=== PATIENT | female | born 1985 | race Caucasian/White ===

== ENCOUNTER 2016-07-16 08:24 | Emergency (ER) | payer OTHER ==
[~2016-07-16] VITALS: Ht 162.6 cm; Wt 72.0 kg
[~2016-07-16 08:24] MED LIST: CYCL-319 PO; HYDR-906 PO; IBUP-1542 PO; NAPR-260 PO
[2016-07-16 08:28] VITALS: Ht 162.6 cm; Wt 72.0 kg
--- NOTE | 2016-07-16 09:27 | RADRPT ---
PROCEDURE: CT head without Contrast CLINICAL INDICATION: Trauma TECHNIQUE: Transaxial images were made through the head on a multi-slice scanner without intraveno us contrast. Coronal and sagittal images were subsequently reformatted. One or more of the following dose reduction techniques were used: - Automated exposure control. - Adjustment of the mA and/or kV according to patient size. - Use of iterative reconstruction technique. Radiation dose: CTDIvol = 44.81 mGy; DLP = 720.23 mGy-cm. COMPARISON: None FINDINGS: The calvarium appears intact. There is a small right high parietal scalp hematoma. The mastoid air cells and paranasal sinuses are well-aerated.. The ventricles are normal in size and there is no midline shift. A 3 mm calcification is seen within the lateral left frontal lobe. No intracranial bleed, mass, or extra-axial fluid collection is identified. There is good baires-white matter differentiation. IMPRESSION: 1. 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 2. Small high right parietal scalp hematoma. 3. Otherwise, unremarkable noncontrast enhanced CT scan of the head. Physician Fara Date Time Electronically viewed and signed by Physician Fara on 07/16/2016 09:27 /
[2016-07-16] MEDS ORDERED: IBUP-1542 PO (09:50)
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
== END 2016-07-16 10:05 | disposition home or self-care (01) ==
LOC: E/R 08:24
DX: S00.03XA Contusion of scalp, initial encounter (principal); Y08.89XA Assault by other specified means, initial encounter
CPT/HCPCS: 70450

== ENCOUNTER 2016-09-01 19:53 | Emergency (ER) | payer OTHER ==
[~2016-09-01] VITALS: Ht 157.5 cm; Wt 87.0 kg
[2016-09-01 20:17] VITALS: Ht 157.5 cm; Wt 87.0 kg
--- NOTE | 2016-09-01 20:42 | ERD ---
ER Documentation Chief Complaint Date/Time DATE: 09/01/16 TIME: 20:[address], colds x1 week and cough and body malaise x2 days. afebrile today HPI 31-year-old female who presents to the emergency room for sore throat, productive cough for about a week. Denies headache, loss of consciousness, dizziness, blurry vision, changes in vision, photophobia, facial pain, ear pain, difficulty swallowing, neck pain, shoulder pain, chest pain, hemoptysis, abdominal pain, back pain, loss of appetite, nausea, vomiting, hematochezia, diarrhea, constipation, urinary symptoms, , the possibility of being , bladder and bowel incontinences, extremity weakness, extremity tenderness, numbness or tingling sensation, difficulty walking, recent travel, recent exposure to illness, recent antibiotic use in the last 3 months, fever, chills. LMP:" I started." A2 Denies any allergies. Past medical history: Migraine. Surgery: Cholecystectomy. Medication: [id number] medications for sore throat. Social: Not working at this time. Denies smoking, use of alcohol, use of illicit drugs. ROS All systems reviewed and are negative except as per history of present illness. Medications Home Meds Active Scripts Acetaminophen* (Tylenol*) 325 Mg Tablet, 2 TAB PO Q6 Y for PAIN AND OR ELEVATED TEMP, #20 TAB Prov:LARRY FARNSWORTH 09/01/16 Albuterol Sulfate* (Proair HFA*) 8.5 Gm Hfa.aer.ad, 2 PUFF INH Q4, #1 INHALER Prov:LARRY FARNSWORTH 09/01/16 Ibuprofen* (Motrin*) 800 Mg Tab, 800 MG PO Q6H Y for PAIN AND OR ELEVATED TEMP, #30 TAB Prov:LARRY FARNSWORTH 09/01/16 Amoxicillin/Potassium Clav (Amox-Clav 875-125 mg Tablet) 875-125 mg Tab, 1 TAB PO BID for 7 Days, #14 TAB Prov:DAJADOLORESMURRAY Jenna 09/01/16 Ibuprofen* (Motrin*) 600 Mg Tab, 600 MG PO Q6H Y for PAIN AND OR ELEVATED TEMP, #30 TAB Prov:GREGORY HORAN 07/16/16 Cyclobenzaprine Hcl* (Cyclobenzaprine Hcl*) 10 Mg Tablet, 10 MG PO TID, #15 TAB Prov:GABRIELLE GOLDEN PA-C 03/15/16 Naproxen* (Naprosyn*) 500 Mg Tablet, 500 MG PO BID Y for PAIN AND/OR INFLAMMATION, #30 TAB Prov:GABRIELLE GOLDEN PA-C 03/15/16 Hydrocodone/Acetaminophen ([place] 5-325 Tablet) 1 Each Tablet, 1 TAB PO Q6H Y for PAIN, #7 TAB Prov:GABRIELLE GOLDEN PA-C 03/15/16 Ibuprofen* (Motrin*) 600 Mg Tab, 600 MG PO Q6, #30 TAB Prov:GABRIELLE GOLDEN PA-C 04/21/15 Allergies Allergies: Coded Allergies: No Known Allergy (Verified , 05/29/11) PMhx/Soc History of Surgery: Yes (cholecystectomy) Anesthesia Reaction: No Hx Respiratory Disorders: No Hx Cardiac Disorders: No Hx Psychiatric Problems: No Hx Miscellaneous Medical Probl: Yes (depression) Hx Alcohol Use: No Hx Substance Use: No Hx Tobacco Use: No Physical Exam Vitals Vital Signs Date Time Temp Pulse Resp B/P Pulse Ox O2 Delivery O2 Flow Rate FiO2 09/01/16 20:17 98.6 81 18 121/80 97 Physical Exam CONSTITUTIONAL: Well-appearing; well-nourished; in no apparent distress. HEAD: Normocephalic; atraumatic. EYES: Conjunctiva clear, sclera non-icteric, EOM intact. PERRL Ears: Hearing intact. EACs clear, TMs non-bulging, non-inflamed, translucent & mobile, ossicles normal appearance, No obstructions, no erythema, no discharges Nose: No obstructions. No polyps. No external lesions. Mucosa non-inflamed. No external lesions, septum and turbinates normal. No rhinorrhea. No discharges. Frontal sinus is tender to palpation. Maxillary sinus is tender to palpation. MOUTH: Moist mucous membranes, no lesion, no obstructions, no vesicles, no thrush, patent airway Throat: Uvula in midline. Right tonsil is +2 with erythema, no exudate. Left tonsil is +2 with erythema, no exudate. Tolerating secretions well. Good gag reflex. Patent airway. Neck: Supple, without lesions, bruits, or adenopathy. No mass. Thyroid non- enlarged and non-tender to palpation. Good and full range of motion of neck and spine without pain/swelling/discoloration/tenderness. CHEST: Symmetrical chest. Respirations even and not labored. No retractions noted. CARDIOVASCULAR: Normal S1, S2. RRR. No murmurs, gallops. RESPIRATORY: Normal chest excursion with respiration; breath sounds clear and equal bilaterally; no wheezes, rhonchi, or rales. Breathing even and unlabored. Speaking in clear, full, and complete sentences w/ ease. ABDOMEN: Normal bowel sounds normal. Soft, round, non-distended, non-guarding, no tenderness, no rebound, no organomegaly, no masses, no pulsating abdominal mass. No hernia. No peritoneal signs. : No CVA tenderness. BACK: Symmetrical shoulder. Spine is midline without deformity, tenderness. No evidence of trauma or deformity. PELVIS: Stable pelvis. No evidence of trauma or deformity. MUSCULOSKELETAL: Normal gait and station. No misalignment, asymmetry, crepitation, defects, tenderness, masses, effusions, decreased range of motion, instability, atrophy or abnormal strength or tone in the head, neck, spine, ribs , pelvis or extremities. No calf tenderness. NEUROVASCULAR: Distal pulses are present. Pedal pulse are present, equal, and normal. Capillary refills are < 2 seconds. NEUROLOGIC: Alert and oriented x4. Speaks full and clear sentences. Cranial Nerves II-XII normal. Sensation to pain, touch, and proprioception normal. Grossly unremarkable. No neurologic deficits. Romberg test is negative. PSYCHOLOGICAL: The patients mood and manner are appropriate. No hallucinations , delusions. Not SI. Not HI. Has the capacity to decide for self SKIN: Normal for age and ethnicity; warm; dry; good turgor; no apparent lesions or exudates. No rashes, hives, discoloration. Intact. Procedures/MDM Examination: Please see physical examination. Differential diagnosis: Pneumonia versus bronchitis versus upper respiratory infection versus strep throat versus tonsillitis versus acute sinusitis Medical decision makin-year-old female who presents to the emergency room for sore throat, productive cough for about a week. Patient's complaint, my physical findings are consistent with my final diagnosis of sinusitis, tonsillitis, bronchitis Medications prescribed are the following: Augmentin. Pro-air. Motrin. Tylenol. Patient and family member are made aware of the side effects and adverse reactions of the medications prescribed. Instructed on when to seek emergent and medical attention in case allergic/anaphylactic reactions or severe side effects and or adverse reactions to medications. Patient and family member verbalized understanding. Patient instructed Instructed to follow-up with his PCP in 24-48 hours. Patient stated that she will see her primary care physician tomorrow. Instructed to Call 911 for chest pain, shortness of breath. Advised to come back here in ED as soon as possible for severity of symptoms which includes but not limited to: any new symptoms; shortness of breath/difficulty of breathing; cardiovascular changes; severe gastrointestinal symptoms; signs and symptoms of bleeding and or infection; signs of compartment syndrome/neurovascular changes; neurological changes/deficits. Patient and family member verbalized understanding. Upon discharge, patient is alert and oriented x 4, speaks full and clear sentences, denies pain, has no neurological deficits, has no neurovascular deficits, difficulty of breathing. Breathing even and unlabored. Lung sounds are clear to auscultation. Not in distress. Appears comfortable. Ambulatory with steady gait. Appears satisfied with care provided here in ED. Departure Diagnosis: Primary Impression: Sinusitis Sinusitis location: maxillary Chronicity: acute Additional Impression: Tonsillitis Condition: Good Additional Instructions: Patient instructed Instructed to follow-up with his PCP in 24-48 hours. Patient stated that she will see her primary care physician tomorrow. Instructed to Call 911 for chest pain, shortness of breath. Advised to come back here in ED as soon as possible for severity of symptoms which includes but not limited to: any new symptoms; shortness of breath/difficulty of breathing; cardiovascular changes; severe gastrointestinal symptoms; signs and symptoms of bleeding and or infection; signs of compartment syndrome/neurovascular changes; neurological changes/deficits. Patient and family member verbalized understanding. LARRY FARNSWORTH Sep 01, 2016 20:42
[2016-09-01] MEDS ORDERED: ALBU8.5H3 INH (20:43)
[2016-09-01] MEDS ORDERED: IBUP800T25 PO (20:43)
[2016-09-01] MEDS ORDERED: AMOX1TAB10 PO (20:43)
[2016-09-01] MEDS ORDERED: ACET325T33 PO (20:44)
== END 2016-09-01 20:45 | disposition home or self-care (01) ==
LOC: E/R 19:53
DX: J01.00 Acute maxillary sinusitis, unspecified (principal); J03.90 Acute tonsillitis, unspecified
CPT/HCPCS: 99284

== ENCOUNTER 2016-10-12 19:35 | Emergency (ER) | payer SELFPAY ==
[~2016-10-12] VITALS: Ht 162.6 cm; Wt 86.5 kg
[~2016-10-12 19:35] MED LIST changes: +ACET325T33 PO; +ALBU8.5H3 INH; +AMOX1TAB10 PO; +IBUP800T25 PO
[2016-10-12 19:39] VITALS: Ht 162.6 cm; Wt 86.5 kg
== END 2016-10-12 21:45 | disposition left against medical advice (07) ==
LOC: FTE 19:35
DX: Z53.21 Procedure and treatment not carried out due to patient leaving prior to being seen by health care provider (principal)

== ENCOUNTER 2017-04-06 16:47 | Outpatient (CLI) | payer OTHER ==
[~2017-04-06] VITALS: Ht 165.1 cm; Wt 91.1 kg
[2017-04-06 16:56] VITALS: Ht 165.1 cm; Wt 91.1 kg
[2017-04-06 16:57] VITALS: BP 140/73; RESP 16
[2017-04-06] MEDS ORDERED: PREN-17 PO (17:01)
[2017-04-06 17:29] LABS: ADD UMIC YES; UR ASCORBIC ACID 40 mg/dL (NEGATIVE); UR BILIRUBIN (Dip) NEGATIVE (NEGATIVE); UR BLOOD (Dip) NEGATIVE (NEGATIVE); UR CLARITY SLIGHTLY CLOUDY (CLEAR); UR COLOR YELLOW (YELLOW); UR GLUCOSE (Dip) NEGATIVE (NEGATIVE); UR KETONES (Dip) 1+ mg/dL (NEGATIVE); UR LEUKOCYTE ESTERASE (Dip) TRACE Leu/ul (NEGATIVE); UR NITRITE (Dip) NEGATIVE (NEGATIVE); UR RBC 14 /HPF (0-5); UR SPECIFIC GRAVITY (Dip) 1.027 (1.003-1.030); UR SQUAMOUS EPITHELIAL CELL FEW /HPF (FEW); UR TOTAL PROTEIN (Dip) NEGATIVE (NEGATIVE); UR UROBILINOGEN (Dip) NEGATIVE (NEGATIVE)
--- NOTE | 2017-04-06 18:43 | TRIAGE ---
OB Triage Datetime Report Generated by CPN: 04/06/2017 18:43 Datetime: 04/06/2017 18:09 Labor Evaluation Frequency: 0 Pattern: Normal: <= 5 Contractions in 10 Minutes Datetime: 04/06/2017 17:05 Stage of : OB Triage Assessment Type: Triage Maternal Assessment Level of Consciousness: Fully Conscious DTR's/Clonus: DTRs 2+; No Clonus Headache: Denies Blurred Vision: No Respiratory Effort: Unlabored; Regular Rhythm; Equal Expansion Breath Sounds, Left: Clear and Equal Breath Sounds, Right: Clear and Equal Nausea/Vomiting: Denies RUQ Epigastric Pain: Denies Lower Extremities Edema: None Degree: None Upper Extremities Edema: None Degree: None Facial Edema: None Temperature Route: Oral Fall Risk Assessment History of Falling: (0) No Secondary Diagnosis: (0) No Ambulatory Aid: (0) Bedrest/Nurse Assist IV Therapy: (0) No Gait: (0) Normal/Bedrest/Immobile Mental Status: (0) Oriented to Own Ability Fall Score: 0 Fall Risk Score Definition: No Risk: No action required Monitor Mode: External Heart Rate FHR Baseline Rate: 135 Monitor Mode: External US Variability: Moderate 6-25 bpm Accelerations: 15X15 Decelerations: None Category: Category I Pain Assessment Pain Scale: 8 Pain Presence: Intermittent Pain Type: Cramping; Ache Pain Location: Right Groin; Left Groin Pain Goal: 0 Pain Relief Measures: Comfort Measures Datetime: 04/06/2017 17:04 Time of Arrival: 04/06/2017 13:05 EGA: 23.4 Arrived By: Ambulatory Arrived From: Home Chief Complaint: PAINFUL URINATION AND SIDE LIGAMENT PAIN Movement: Present Contractions: Denies/Absent Rupture of Membranes: Denies Vaginal Bleeding: None Vaginal Discharge: Denies Recent Sexual Intercouse: Denies Abdominal Trauma: Not Applicable Patient Complaints: Other Time Provider Notified: 04/06/2017 18:11 Provider Notified: UJLY Initial Plan: [id number], UA
--- NOTE | 2017-04-06 18:45 | CONS ---
Date/Time of Note Date/Time of Note DATE: 04/06/17 TIME: 18:39 Consultation Date/Type/Reason Admit Date/Time April 06, 2017 OB triage consult This patient is 32 years old 6 living 2 therapeutic spontaneous with estimated date of confinement of July 30, 2017 which makes her 23 weeks and 4 days today She came to triage complaining of the pain during urination for a few days her course so so for was uncomplicated. On examination she is a well-developed well-nourished lady somewhat overweight her abdomen is soft no contract. heart tone is normal no decelerations. Abdomen is soft . Her vital signs appear to be within normal limits with blood pressure 130/73 , pulse rate of 96, respiration of 16, temperature 98.2. Laboratory Tests Test 04/06/17 17:00 Urine Color YELLOW Urine Clarity SLIGHTLY CLOUDY Urine pH 6.0 Urine Specific [place] 1.027 Urine Ketones 1+mg/dL Urine Nitrite NEGATIVEmg/dL Urine Bilirubin NEGATIVEmg/dL Urine Urobilinogen NEGATIVEmg/dL Urine Leukocyte Esterase TRACELeu/ul Urine Microscopic RBC 14/HPF Urine Microscopic WBC 2/HPF Urine Squamous Epithelial Cells FEW/HPF Urine Hemoglobin NEGATIVEmg/dL Urine Glucose NEGATIVEmg/dL Urine Total Protein NEGATIVEmg/dl Constitutional: No chills, No diaphoresis, No disoriented, No febrile, No improved, No no complaints, No other, No poor po, No requiring IVF, No requiring O2 Eyes: No discharge, No no complaints, No other, No pain, No redness, No visual change ENT: No bleeding, No congestion, No discharge, No dysphagia, No no complaints, No other, No pain, No sore throat Respiratory: No cough, No no complaints, No other, No pain, No pleuritic pain, No shortness of breath, No sputum, No wheezing Cardiovascular: No chest pain, No edema, No lightheadedness, No no complaints, No orthopenea, No other, No palpitations, No paroxysmal nocturnal dyspnea Gastrointestinal: No blood, No constipation, No decreased appetite, No diarrhea , No flatus, No nausea, No no complaints, No other, No pain, No passing stool, No vomiting Genitourinary: No bleeding, No discharge, No dysuria, No flank pain, No hematuria, No no complaints, No other Musculoskeletal: No back pain, No bone/joint pain, No neck pain, No no complaints, No other, No restricted range of motion, No swelling Additional Comments . .Due to lack of any contractions pelvic exam was not performed . Urine sent for urinalysis result was 1+ ketone 2 WBC with these finding a possibility of urinary tract infection were discussed with her. The clean-catch urine was sent for urinalysis and culture sensitivity she was given a prescription for Macrobid 100 mg to be taken twice a day. We stressed the fact that she has to call her copy and print associate in 3 days to find out what the result of the culture sensitivity is so that they can decide to continue , DC or change the antibiotic accordingly. End of dictation Social History Smoking Status: Never smoker Exam/Review of Systems Vital Signs Vitals Vital Signs Date Time Temp Pulse Resp B/P Pulse Ox O2 Delivery O2 Flow Rate FiO2 04/06/17 16:57 98.0 16 140/73 Room Air Results Results 24 hrs Laboratory Tests Test 04/06/17 17:00 Urine Color YELLOW Urine Clarity SLIGHTLY CLOUDY A Urine pH 6.0 Urine Specific [place] 1.027 Urine Ketones 1+ H Urine Nitrite NEGATIVE Urine Bilirubin NEGATIVE Urine Urobilinogen NEGATIVE Urine Leukocyte Esterase TRACE A Urine Microscopic RBC 14 H Urine Microscopic WBC 2 Urine Squamous Epithelial Cells FEW Urine Hemoglobin NEGATIVE Urine Glucose NEGATIVE Urine Total Protein NEGATIVE ADELA MCDOWELL MD Apr 06, 2017 18:45
== END 2017-04-06 18:35 | disposition home or self-care (01) ==
LOC: OBT 16:47 → L-D 16:49 → OBT 18:35
PROVIDERS: ATTEND Obstetrics & Gynecology
DX: O26.892 Other specified pregnancy related conditions, second trimester (principal); Z3A.23 23 weeks gestation of pregnancy; R30.0 Dysuria
CPT/HCPCS: 81001; 87086; Z7500; G0463

== ENCOUNTER 2017-07-30 04:00 | Inpatient (IN) | END 2017-08-01 12:55 | disposition home or self-care (01) | DRG 775 ==